=== PATIENT | female | born 2005 | race Two or more races ===

== ENCOUNTER 2024-09-09 23:23 | Emergency (ER) | payer OTHER, SELFPAY ==
[2024-09-09 23:25] VITALS: BP 109/92
--- NOTE | 2024-09-10 01:17 | ED.GENMED ---
History of Present Illness
General
Chief Complaint: Chest Problem
Source: patient and family
Time Seen by Provider: 09/10/24 01:07
History of Present Illness
History of Present Illness:
This patient is a 20-year-old female who presents emergency department plaints of chest pain. She describes it as 'sharp' isolated to 1 specific area in the anterior part of her chest, lasting 2 minutes or so at a time and then resolving
spontaneously before returning every 5 to 10 minutes. This started 3 days ago and continues. Today she noticed that she also had discomfort in her left arm with this associated chest pain, also intermittent. This is not associated with dyspnea
diaphoresis, numbness, tingling, focal weakness, nausea, vomiting, jaw pain, back pain, leg swelling, or other complaints. Patient is not on estrogen products. There is no family or personal history of DVT. Patient denies recent immobilization or
trauma. Mom, who is at bedside, notes there is a family history of atrial fibrillation and a family member has a pacer, no specific history of CAD or early .
Past History
Past History
ED Past Medical History: Psychiatric
ED Past Surgical History: None
Social History
Tobacco: Vaping
Alcohol: None
Drug: None
Personal: Single
Employment: Employed
Phy Exam
Physical Exam
Physical Exam:
GENERAL: Alert , in no apparent distress
EYE: pupils equal and reactive
NECK: Supple, no significant adenopathy.
ENT: o/p clr, mmm.
CARDIAC: Regular rate and rhythm .
LUNGS: Clear breath sounds bilaterally, no acute respiratory distress, no wheezes/rales/rhonchi
ABDOMEN: Soft, without focal tenderness, no r/g, no cvat
NEUROLOGICAL: Alert and oriented, no focal neuro deficits
SKIN: Warm and dry, skin intact.
MUSCULOSKELETAL: No edema, well perfused.
PSYCH: Normal and appropriate interaction.
Scores
PERC Rule Criteria
Age <50 years: Yes
HR <100 bpm: Yes
Room air oxygen sat >94%: Yes
History of DVT or PE: No
Recent trauma or surgery: No
Hemoptysis: No
Exogenous estrogen: No
Clinical signs suggestive of DVT: No
: No
Considered low risk for PE: Yes
PERC Score: 0
PE can be excluded by PERC: Yes
Course
Orders/Labs/Results
Orders:
Orders
09/09/24 23:27
Electrocardiogram (*1) Urgent
Reason for Study: Chest Pain
09/09/24 23:28
EKG- Treatment ONCE
09/10/24 01:17
CR Chest - 2 Views Urgent
Comment:
Reason For Exam: cp
09/10/24 01:32
Basic Metabolic Panel Urgent
Complete Blood Count/No Diff Urgent
TSH Urgent
Abnormal Lab Results
09/10/24
01:32
Hct 35.0 L %
(37.0-47.0)
MCV 79.4 L fL
(81.0-99.0)
Glucose 101 H mg/dl
(70-99)
09/10/24 01:32
09/10/24 01:32
Vital Signs
Initial and Last Documented VS:
Initial Vital Signs
Temp Pulse Resp BP Pulse Ox
98.0 F 66 18 109/92 97
09/09/24 23:25 09/09/24 23:25 09/09/24 23:25 09/09/24 23:25 09/09/24 23:25
Last Documented Vital Signs
Temp Pulse Resp BP Pulse Ox
98.0 F 66 18 109/92 97
09/09/24 23:25 09/09/24 23:25 09/09/24 23:25 09/09/24 23:25 09/09/24 23:25
Update Note
Update Note:
Patient presents to the Emergency Department with
Number and Complexity of Problems Addressed at the Encounter
� Chronic conditions affecting care:
� Acute Exacerbation and/or Progression of Chronic Illness:
� Differential Diagnosis includes:but not limited to pericarditis, pleuristy, pe, ptx, etc etc.
Amount and/or Complexity of Data to be Reviewed and Analyzed
� I performed an independent evaluation of and my interpretation is:
EKG: Read by me, sinus bradycardia, no acute ischemia
CT:
Xrays:cxr read by me, nad
Laboratory Studies:generally unremarkable
Other:
� Review of other/old records reveals:
� Clinical information was obtained by an independent historian: Mother and partner who are at bedside
� Prescriptions/Medications Considered but not given:
� Further testing considered but not performed: brief consideration for D dimer but pt low risk, not pleuritic cp, perc negative, etc.
Risk of Complications and/or Morbidity or Mortality of Patient Management
� Social determinants of health affecting care:
� Discussion with other providers (PCP, Hospitalists, Consultants, etc):
� Escalation of care including admission/observation vs risk of discharge considered:220 AM Pt remains well appearing, in nad, asx. Highly doubt pericarditis/PE/ptx, etc.
ED Attending Note
-
Portions of this chart may have been created with voice recognition software.� Occasional wrong word or��sound alike� substitutions may have occurred due to the inherent limitations of voice recognition software.
Discharge Plan
Departure
Patient Disposition: Home (Routine Discharge)
Date of Disposition: 09/10/24
Time of Disposition: 02:18
Patient with high blood pressure during this ER visit?: Yes
Condition: Good
Discharge Problem:
Chest pain
Instructions: Chest Pain (DC), BLOOD PRESSURE
Referrals:
Mariano Mckeon MD [Family Provider] - Follow up in 2-3 days
Activity Restrictions/Additional Instructions:
IF YOU DEVELOP INCREASING/NEW/PERSISTENT PAIN, ANY TROUBLE BREATHING, FEVER, VOMITING, DIZZINESS, OR OTHER WORRISOME SIGNS, GO TO THE ER IMMEDIATELY!
Interventions
Interventions:
*Risk Screen - Suicide Last Done: 09/10/24 00:44
*General Assessment Last Done: 09/10/24 01:34
*Neglect/Abuse Screening Last Done: 09/10/24 00:44
*ED COVID-19 Vaccine History Last Done: 09/10/24 01:34
ED- Cardiac Assessment Last Done: 09/10/24 01:34
ED- Pulmonary Assessment Last Done: 09/10/24 01:34
Discharge Date and Time
Print Language: [id number]
[2024-09-10 01:34] VITALS: BMI 27.5
[2024-09-10 01:46] LABS: Hemoglobin 12.3 g/dL (12.0-16.0); Mean Corp Hgb Conc. 35.1 g/dL (33.0-37.0); Mean Corpuscular Hgb 27.9 pg (27.0-31.0); Mean Corpuscular Volume 79.4 fL (81.0-99.0); Platelet Count 290 10^3/uL (130-400); Red Blood Cell Count 4.41 10^6/uL (4.20-5.40); Red Cell Dist. Width 12.9 % (11.5-14.5); White Blood Cell Count 6.3 10^3/uL (4.8-10.8)
[2024-09-10 01:53] LABS: Blood Urea Nitrogen 13 mg/dl (7-17); Calcium 9.3 mg/dl (8.4-10.2); Carbon Dioxide 24 mmol/L (22-30); Chloride 103 mmol/L (98-107); Estimated Creatinine Clearance 81 ml/min; Glucose 101 mg/dl (70-99); Potassium 3.7 mmol/L (3.5-5.1); Sodium 142 mmol/L (135-145); eGFR > 60.00
[2024-09-10 02:00] VITALS: BP 101/65
[2024-09-10 02:24] LABS: TSH 3.55 uIU/ml (0.47-4.68)
== END 2024-09-10 02:58 | disposition home or self-care (01) ==
LOC: EMR 23:23
PROVIDERS: EMERGENCY PHYSICIAN Emergency Medicine; FAMILY PHYSICIAN Family Medicine
DX: R07.89 Other chest pain (principal); F17.290 Nicotine dependence, other tobacco product, uncomplicated
CPT/HCPCS: 99284; 71046; 80048; 84443; 85027; 93005